=== PATIENT | female | born 1960 | race Caucasian/White ===

== ENCOUNTER → 2024-06-13 12:00 | Outpatient (BNV) | payer OTHER, SELFPAY | PROVIDERS: Visit Provider Psychiatry & Neurology Psychiatry | DX: F33.2 Major depressive disorder, recurrent severe without psychotic features (principal) | CPT/HCPCS: 90867 ==

== ENCOUNTER → 2024-07-25 16:30 | Outpatient (BNV) | payer OTHER, SELFPAY | PROVIDERS: Visit Provider Clinical Nurse Specialist Psychiatric/Mental Health | DX: F33.2 Major depressive disorder, recurrent severe without psychotic features (principal) | CPT/HCPCS: 90867; 90868 ==

== ENCOUNTER 2024-08-24 16:30 | Outpatient (RCR) | payer OTHER, SELFPAY ==
--- NOTE | 2024-05-02 13:01 | W.PM.TMSCONS ---
History of Present Illness General Data Date of Service: 05/02/2024 Reason for consult: tms eval Requesting provider: Marsha Earl History of Present Illness The patient is a 63-year-old female living alone with a long history of recurrent depression referred by Marsha Angelo nurse practitioner for treatment resistant depression. The patient has responded well previously to a full course of TMS with excellent response. There is no history psychotic symptoms or manic symptoms. Patient has been in a quite significant severe depression for about 1 year impacting her functioning and quality of life in a very significant way. She describes low energy a motivation difficulty concentrating and a great deal of difficulty experiencing any pleasure. She has had a number of stressors over the past year or more including rheumatoid arthritis with limited response, breakup with a significant other that was quite difficult year and a half ago and her daughter had had a significant depression. Patient sees her nurse practitioner for medication and also some degree of ongoing counseling. 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 Patient has had trials of Prozac 40 mg Trintellix 20 mg Effexor 150 mg, citalopram 20, sertraline 200 mg mirtazapine up to 30 mg Pristiq without benefit. [facility] Narrative: History of rheumatoid arthritis now on Kevzara was on Xeljanz previously. She does intermittently require prednisone she is on Vicodin 10 mg 3 times a day nebulizer 3 times weeks Zyrtec daily Singulair Patient does have a left shoulder repair she states this is nonfebrile magnetic able to have an MRI no surgery above the head or neck no pacemaker no cochlear implant or other metallic implants Has diffuse pain in her joints There is a questionable history of bronchiectasis reportedly although she states pulmonary function test have been okay Narrative: Left shoulder replacement Family History: History of suicide in the family daughter with depression sister with depression grandmother with a history of a mood disorder uncle committed suicide. Social History: Patient lives alone she works for [employer] and does work as a court clinician. She is close with her daughter and grandchild she lives in [place] feels somewhat isolated Substance History: na Trauma History: na stressful events over the past couple of years Meds/Allergies Meds Narrative: See hpi Allergies Allergies Allergy/AdvReac Type Severity Reaction Status Date / Time meloxicam [From MOBIC] Allergy Intermediate BLISTERS Unverified 03/29/20 15:56 Mental Status Exam Mental Status Exam Narrative: 122/75 p 87 Patient Appearance: Well Grooomed Patient Orientation: Person, Place, Time and Situation Level of Consciousness: Awake and Appropriate Patient Behavior: Cooperative Mood Description: Depressed and Blunted Affect Description: Appropriate, Constricted and Blunted Patient Cognition Impaired: No Ability to Follow Directions: Good Speech Pattern: Clear Memory Description: Intact Hallucinations: None Delusions: Not Present Thought Process: Intact and Goal Oriented Thought Content: positive for Goal Oriented, positive for Preoccupation, positive for Suicidal Ideation (No plan or intent but passive thoughts she might be better off ) and negative for Homicidal Ideation Depressive Symptoms: Insomnia, Loss of Int. in Activity, Feelings of Worthlessness, Hopelessness, Increased Fatigue, Thoughts of /Suicide, Loss of Energy and Difficulty Concentrating Judgement: Good Assessment & Plan Assessment & Plan (1) Major depressive disorder, recurrent severe without psychotic features: Status: Acute Code(s): F33.2 - Major depressive disorder, recurrent severe without psychotic features (2) Rheumatoid arthritis: Status: Acute Code(s): M06.9 - Rheumatoid arthritis, unspecified Plan The patient has no medical contraindications to treatment with TMS and has had an excellent response previously Current PHQ-9 is 21 to struggle to function work maintain herself labeled as extremely difficult. Given that the patient has not had a history of good response to medication and given that she previously had a documented excellent response to TMS she is a good candidate. Prior treatment was done without difficulty no significant adverse effects noted. No medical contraindications aware of shoulder replacement recently which should not be problematic both regarding distance and material used Total time managing care of this patient today ____ minutes. Patient educated on: diagnosis, ECT and medical condition Informed Consent: understands
--- NOTE | 2024-06-14 10:22 | HO.TMSDAILY2 ---
TMS Daily Progress Note Daily TMS Progress Note Date of Service: 06/13/24 Week #: 1 Treatment #(08-11): 1 PHQ-9 Pre-Treatment (08-08): 19 PHQ-9 Most Recent (08-08): 19 Reviewed: TMS Mapping/Re-mapping completed Verification: I have reviewed the TMS Development Disability Specialist Note and agree with the contents. The patient remains a candidate to continue TMS treatment per protocol. Assessment and Plan (1) Major depressive disorder, recurrent severe without psychotic features: Status: Acute Plan initial mapping completed MT 1.3 discussed with pt inc sz risk with mary corey had tolerated tx previously on 450 wellbutrin
--- NOTE | 2024-07-07 10:42 | P.PNPS_ITS ---
TMS Daily Progress Note Daily TMS Progress Note Date of Service: 06/15/24 Week #: 1 Treatment #(08-11): 3 PHQ-9 Pre-Treatment (08-08): 19 PHQ-9 Most Recent (08-08): 12 Reviewed: TMS Tech Note Reviewed Verification: I have reviewed the TMS Social Media Executive Note and agree with the contents. The patient remains a candidate to continue TMS treatment per protocol. Assessment and Plan (1) Major depressive disorder, recurrent severe without psychotic features: Status: Acute Plan difficuly tolerating tx coil angle adjusted secondary to fascial pain mt 90%
--- NOTE | 2024-07-07 10:42 | P.PNPS_ITS ---
TMS Daily Progress Note Daily TMS Progress Note Date of Service: 06/16/24 Week #: 1 Treatment #(08-11): 4 PHQ-9 Pre-Treatment (08-08): 19 PHQ-9 Most Recent (08-08): 12 Reviewed: TMS Tech Note Reviewed Verification: I have reviewed the TMS Insurance Account Manager Note and agree with the contents. The patient remains a candidate to continue TMS treatment per protocol. Assessment and Plan (1) Major depressive disorder, recurrent severe without psychotic features: Status: Acute Plan some fatigue post tx tolerating tx
--- NOTE | 2024-07-07 10:42 | HO.TMSDAILY2 ---
TMS Daily Progress Note Daily TMS Progress Note Date of Service: 06/20/24 Week #: 1 Treatment #(08-11): 5 PHQ-9 Pre-Treatment (08-08): 19 PHQ-9 Most Recent (08-08): 11 Reviewed: TMS Tech Note Reviewed Verification: I have reviewed the TMS Medical Collector Note and agree with the contents. The patient remains a candidate to continue TMS treatment per protocol. Assessment and Plan (1) Major depressive disorder, recurrent severe without psychotic features: Status: Acute Plan tolerating tx mt gradually inc %
--- NOTE | 2024-07-07 10:43 | P.PNPS_ITS ---
TMS Daily Progress Note Daily TMS Progress Note Date of Service: 06/23/24 Week #: 2 Treatment #(08-11): 8 PHQ-9 Pre-Treatment (08-08): 19 PHQ-9 Most Recent (08-08): 11 Reviewed: TMS Tech Note Reviewed Verification: I have reviewed the TMS Grails Web Application Developer Note and agree with the contents. The patient remains a candidate to continue TMS treatment per protocol. Assessment and Plan (1) Major depressive disorder, recurrent severe without psychotic features: Status: Acute Plan mt %inc doing well with tx no concerns
--- NOTE | 2024-07-07 10:43 | P.PNPS_ITS ---
TMS Daily Progress Note Daily TMS Progress Note Date of Service: 06/27/24 Week #: 2 Treatment #(08-11): 9 PHQ-9 Pre-Treatment (08-08): 19 PHQ-9 Most Recent (08-08): 12 Reviewed: TMS Tech Note Reviewed Verification: I have reviewed the TMS Ship Propeller Finisher Note and agree with the contents. The patient remains a candidate to continue TMS treatment per protocol. Assessment and Plan (1) Major depressive disorder, recurrent severe without psychotic features: Status: Acute Plan mt %inc 120 doing well with tx no concerns
--- NOTE | 2024-07-07 10:43 | HO.TMSDAILY2 ---
TMS Daily Progress Note Daily TMS Progress Note Date of Service: 06/21/24 Week #: 2 Treatment #(08-11): 6 PHQ-9 Pre-Treatment (08-08): 19 PHQ-9 Most Recent (08-08): 11 Reviewed: TMS Tech Note Reviewed Verification: I have reviewed the TMS Technical Communication Teacher Note and agree with the contents. The patient remains a candidate to continue TMS treatment per protocol. Assessment and Plan (1) Major depressive disorder, recurrent severe without psychotic features: Status: Acute Plan tolerating tx mt gradually inc % minimal s/e
--- NOTE | 2024-07-07 10:43 | HO.TMSDAILY2 ---
TMS Daily Progress Note Daily TMS Progress Note Date of Service: 06/28/24 Week #: 2 Treatment #(08-11): 10 PHQ-9 Pre-Treatment (08-08): 19 PHQ-9 Most Recent (08-08): 12 Reviewed: TMS Tech Note Reviewed Verification: I have reviewed the TMS Customer Contact Sales Associate Note and agree with the contents. The patient remains a candidate to continue TMS treatment per protocol. Assessment and Plan (1) Major depressive disorder, recurrent severe without psychotic features: Status: Acute Plan mt %120 doing well with tx no concernsfeeling somewhat better fights the blues
--- NOTE | 2024-07-07 10:43 | HO.TMSDAILY2 ---
TMS Daily Progress Note Daily TMS Progress Note Date of Service: 06/29/24 Week #: 3 Treatment #(08-11): 11 PHQ-9 Pre-Treatment (08-08): 19 PHQ-9 Most Recent (08-08): 12 Reviewed: TMS Tech Note Reviewed Verification: I have reviewed the TMS Proj Mgr Note and agree with the contents. The patient remains a candidate to continue TMS treatment per protocol. Assessment and Plan (1) Major depressive disorder, recurrent severe without psychotic features: Status: Acute Plan mt %120 doing well with tx no concernsfeeling somewhat better fights the blues
--- NOTE | 2024-07-07 11:26 | P.PNPS_ITS ---
TMS Daily Progress Note Daily TMS Progress Note Date of Service: 06/30/24 Week #: 3 Treatment #(08-11): 12 PHQ-9 Pre-Treatment (08-08): 19 PHQ-9 Most Recent (08-08): 12 Reviewed: TMS Tech Note Reviewed Verification: I have reviewed the TMS Air Conditioning Installer Note and agree with the contents. The patient remains a candidate to continue TMS treatment per protocol. Assessment and Plan (1) Major depressive disorder, recurrent severe without psychotic features: Status: Acute Plan mt %120 doing well with tx no concernsfeeling somewhat better fights the blues
--- NOTE | 2024-07-07 11:27 | P.PNPS_ITS ---
TMS Daily Progress Note Daily TMS Progress Note Date of Service: 07/04/24 Week #: 3 Treatment #(08-11): 13 PHQ-9 Pre-Treatment (08-08): 19 PHQ-9 Most Recent (08-08): 12 Reviewed: TMS Tech Note Reviewed Verification: I have reviewed the TMS Automotive Painter Helper Note and agree with the contents. The patient remains a candidate to continue TMS treatment per protocol. Assessment and Plan (1) Major depressive disorder, recurrent severe without psychotic features: Status: Acute Plan cont plan of care
--- NOTE | 2024-07-07 11:27 | P.PNPS_ITS ---
TMS Daily Progress Note Daily TMS Progress Note Date of Service: 06/30/24 Week #: 3 Treatment #(08-11): 12 PHQ-9 Pre-Treatment (08-08): 19 PHQ-9 Most Recent (08-08): 12 Reviewed: TMS Tech Note Reviewed Verification: I have reviewed the TMS Revenue Stamp Clerk Note and agree with the contents. The patient remains a candidate to continue TMS treatment per protocol. Assessment and Plan (1) Major depressive disorder, recurrent severe without psychotic features: Status: Acute Plan cont plan of care tolerating tx
--- NOTE | 2024-07-21 22:36 | P.PNPS_ITS ---
TMS Daily Progress Note Daily TMS Progress Note Date of Service: 07/05/24 Week #: 3 Treatment #(08-11): 14 PHQ-9 Pre-Treatment (08-08): 19 PHQ-9 Most Recent (08-08): 14 Reviewed: TMS Tech Note Reviewed Verification: I have reviewed the TMS Hardening Machine Operator Note and agree with the contents. The patient remains a candidate to continue TMS treatment per protocol. Assessment and Plan (1) Major depressive disorder, recurrent severe without psychotic features: Status: Acute Plan cont plan of care some improvement noted
--- NOTE | 2024-07-21 22:37 | P.PNPS_ITS ---
TMS Daily Progress Note Daily TMS Progress Note Date of Service: 07/07/24 Week #: 3 Treatment #(08-11): 15 PHQ-9 Pre-Treatment (08-08): 19 PHQ-9 Most Recent (08-08): 14 Reviewed: TMS Tech Note Reviewed Verification: I have reviewed the TMS Industrial Relations Specialist Note and agree with the contents. The patient remains a candidate to continue TMS treatment per protocol. Assessment and Plan (1) Major depressive disorder, recurrent severe without psychotic features: Status: Acute Plan tolerating tx some improvement noted
--- NOTE | 2024-07-21 22:39 | P.PNPS_ITS ---
TMS Daily Progress Note Daily TMS Progress Note Date of Service: 07/14/24 Week #: 4 Treatment #(08-11): 18 PHQ-9 Pre-Treatment (08-08): 19 PHQ-9 Most Recent (08-08): 12 Reviewed: TMS Tech Note Reviewed Verification: I have reviewed the TMS Center Receptionist Note and agree with the contents. The patient remains a candidate to continue TMS treatment per protocol. Assessment and Plan (1) Major depressive disorder, recurrent severe without psychotic features: Status: Acute Plan hoping for remapping somewhat discouraged ? relates to kami hernandez
--- NOTE | 2024-07-21 22:39 | HO.TMSDAILY2 ---
TMS Daily Progress Note Daily TMS Progress Note Date of Service: 07/11/24 Week #: 4 Treatment #(08-11): 16 PHQ-9 Pre-Treatment (08-08): 19 PHQ-9 Most Recent (08-08): 12 Reviewed: TMS Tech Note Reviewed Verification: I have reviewed the TMS Bleach Range Operator Note and agree with the contents. The patient remains a candidate to continue TMS treatment per protocol. Assessment and Plan (1) Major depressive disorder, recurrent severe without psychotic features: Status: Acute Plan vyvanse was lowered to 30 sec my talking initially with pt re inc sz risk with wellbutrin stimulants and tms some inc dysphoria
--- NOTE | 2024-07-21 22:39 | HO.TMSDAILY2 ---
TMS Daily Progress Note Daily TMS Progress Note Date of Service: 07/12/24 Week #: 4 Treatment #(08-11): 17 PHQ-9 Pre-Treatment (08-08): 19 PHQ-9 Most Recent (08-08): 13 Reviewed: TMS Tech Note Reviewed Verification: I have reviewed the TMS Machine Silk Screen Printer Note and agree with the contents. The patient remains a candidate to continue TMS treatment per protocol. Assessment and Plan (1) Major depressive disorder, recurrent severe without psychotic features: Status: Acute Plan we discussed remapping pt has prior experience with tx somewhat discouraged discussed options
--- NOTE | 2024-07-21 22:40 | HO.TMSDAILY2 ---
TMS Daily Progress Note Daily TMS Progress Note Date of Service: 07/21/24 Week #: 4 Treatment #(08-11): 18 PHQ-9 Pre-Treatment (08-08): 19 PHQ-9 Most Recent (08-08): 12 Reviewed: TMS Mapping/Re-mapping completed Verification: I have reviewed the TMS Salesperson Meats Note and agree with the contents. The patient remains a candidate to continue TMS treatment per protocol. Assessment and Plan (1) Major depressive disorder, recurrent severe without psychotic features: Status: Acute Plan Pt was noted to have a floater on l few days ago tms was not done then discussion was held not common known side effect rare case report her opth did nott feel any contraindication >Rmappin went well
--- NOTE | 2024-07-25 17:35 | HO.TMSDAILY2 ---
TMS Daily Progress Note Daily TMS Progress Note Date of Service: 07/25/24 Week #: 5 Treatment #(-): 20 PHQ-9 Pre-Treatment (-): 19 PHQ-9 Most Recent (08-08): 11 DOC-7 Pre-Treatment (0-21): 8 DOC-7 Most Recent (0-21): 9 Q-LES-Q-SF Most Recent: Q: 37 40 MT 1.30 Reviewed: TMS Tech Note Reviewed Verification: I have reviewed the TMS Private Security Guard Note and agree with the contents. The patient remains a candidate to continue TMS treatment per protocol. Assessment and Plan (1) Major depressive disorder, recurrent severe without psychotic features: Status: Acute Plan continue TMS tx plan
--- NOTE | 2024-07-26 17:15 | P.PNPS_ITS ---
TMS Daily Progress Note Daily TMS Progress Note Date of Service: 07/26/24 Week #: 5 Treatment #(-): 21 PHQ-9 Pre-Treatment (-): 19 PHQ-9 Most Recent (08-08): 11 DOC-7 Pre-Treatment (0-21): 8 DCO-7 Most Recent (0-21): 9 Q-LES-Q-SF Most Recent: Q: 37 40 MT 1.30 Reviewed: TMS Tech Note Reviewed Verification: I have reviewed the TMS Jewel Hole Finish Opener Note and agree with the contents. The patient remains a candidate to continue TMS treatment per protocol. Assessment and Plan (1) Major depressive disorder, recurrent severe without psychotic features: Status: Acute Plan CONTINUE TMS TX PLAN
--- NOTE | 2024-07-28 16:41 | HO.TMSDAILY2 ---
TMS Daily Progress Note Daily TMS Progress Note Date of Service: 07/27/24 Week #: 5 Treatment #(-): 22 PHQ-9 Pre-Treatment (-): 19 PHQ-9 Most Recent (08-08): 11 DOC-7 Pre-Treatment (0-21): 8 ODC-7 Most Recent (0-21): 9 Q-LES-Q-SF Most Recent: Q: 37 40 MT 1.30 Reviewed: TMS Tech Note Reviewed Verification: I have reviewed the TMS Window Shade Cutter Note and agree with the contents. The patient remains a candidate to continue TMS treatment per protocol.
--- NOTE | 2024-07-28 16:44 | HO.TMSDAILY2 ---
TMS Daily Progress Note Daily TMS Progress Note Date of Service: 07/28/24 Week #: 5 Treatment #(-): 23 PHQ-9 Pre-Treatment (-): 19 PHQ-9 Most Recent (08-08): 11 DOC-7 Pre-Treatment (0-21): 8 DOC-7 Most Recent (0-21): 9 Q-LES-Q-SF Most Recent: Q: 37 40 MT 1.30 Reviewed: TMS Tech Note Reviewed Verification: I have reviewed the TMS Bench Worker Apprentice Note and agree with the contents. The patient remains a candidate to continue TMS treatment per protocol.
--- NOTE | 2024-08-03 15:38 | HO.TMSDAILY2 ---
TMS Daily Progress Note Daily TMS Progress Note Date of Service: 08/03/24 Week #: 5 Treatment #(-): 23 PHQ-9 Pre-Treatment (-): 19 PHQ-9 Most Recent (08-08): 11 DOC-7 Pre-Treatment (0-21): 8 DOC-7 Most Recent (0-21): 9 Q-LES-Q-SF Most Recent: Q: 37 40 MT 1.30 Reviewed: TMS Tech Note Reviewed Verification: I have reviewed the TMS Full Stack Developer Note and agree with the contents. The patient remains a candidate to continue TMS treatment per protocol.
--- NOTE | 2024-08-05 18:25 | HO.TMSDAILY2 ---
TMS Daily Progress Note Daily TMS Progress Note Date of Service: 08/01/24 Week #: 5 Treatment #(-): 23 PHQ-9 Pre-Treatment (-): 19 PHQ-9 Most Recent (08-08): 11 DOC-7 Pre-Treatment (0-21): 8 DOC-7 Most Recent (0-21): 9 Q-LES-Q-SF Most Recent: Q: 37 40 MT 1.30 Reviewed: TMS Tech Note Reviewed Verification: I have reviewed the TMS Director Specialty Note and agree with the contents. The patient remains a candidate to continue TMS treatment per protocol. Assessment and Plan (1) Major depressive disorder, recurrent severe without psychotic features: Status: Acute Plan Continue TMS tx plan
--- NOTE | 2024-08-05 18:29 | HO.TMSDAILY2 ---
TMS Daily Progress Note Daily TMS Progress Note Date of Service: 08/03/24 Week #: 5 Treatment #(-): 23 PHQ-9 Pre-Treatment (-): 19 PHQ-9 Most Recent (08-08): 11 DOC-7 Pre-Treatment (0-21): 8 DOC-7 Most Recent (0-21): 9 Q-LES-Q-SF Most Recent: Q: 37 40 MT 1.30 Reviewed: TMS Tech Note Reviewed Verification: I have reviewed the TMS Resort Keeper Note and agree with the contents. The patient remains a candidate to continue TMS treatment per protocol. Assessment and Plan (1) Major depressive disorder, recurrent severe without psychotic features: Status: Acute Plan Continue TMS tx plan
--- NOTE | 2024-08-08 18:09 | P.PNPS_ITS ---
TMS Daily Progress Note Daily TMS Progress Note Date of Service: 08/08/24 Week #: 6 Treatment #(-): 28 PHQ-9 Pre-Treatment (08-08): 19 PHQ-9 Most Recent (08-08): 9 DOC-7 Pre-Treatment (0-): 8 DOC-7 Most Recent (0-): 9 Q-LES-Q-SF Most Recent: Q: 37 40 MT 1.30 Reviewed: TMS Tech Note Reviewed Verification: I have reviewed the TMS Waffle Machine Operator Note and agree with the contents. The patient remains a candidate to continue TMS treatment per protocol. Assessment and Plan (1) Major depressive disorder, recurrent severe without psychotic features: Status: Acute Plan has been improving cont tx plan
--- NOTE | 2024-08-09 17:27 | HO.TMSDAILY2 ---
TMS Daily Progress Note Daily TMS Progress Note Date of Service: 08/09/24 Week #: 6 Treatment #(-): 29 PHQ-9 Pre-Treatment (-): 19 PHQ-9 Most Recent (08-08): 9 DOC-7 Pre-Treatment (0-21): 8 DOC-7 Most Recent (0-21): 9 Q-LES-Q-SF Most Recent: Q: 37 40 MT 1.30 Reviewed: TMS Tech Note Reviewed Verification: I have reviewed the TMS System Designer Note and agree with the contents. The patient remains a candidate to continue TMS treatment per protocol. Assessment and Plan (1) Major depressive disorder, recurrent severe without psychotic features: Status: Acute Plan cont plan of care bright and engaged
--- NOTE | 2024-08-11 22:37 | HO.TMSDAILY2 ---
TMS Daily Progress Note Daily TMS Progress Note Date of Service: 08/10/24 Week #: 5 Treatment #(-): 21 PHQ-9 Pre-Treatment (-): 19 PHQ-9 Most Recent (08-08): 17 DOC-7 Pre-Treatment (0-21): 8 DOC-7 Most Recent (0-21): 9 Q-LES-Q-SF Most Recent: Q: 37 40 MT 1.30 Reviewed: TMS Tech Note Reviewed Verification: I have reviewed the TMS Business Intelligence Director Note and agree with the contents. The patient remains a candidate to continue TMS treatment per protocol. Assessment and Plan (1) Major depressive disorder, recurrent severe without psychotic features: Status: Acute Plan cont plan of care
--- NOTE | 2024-08-21 21:55 | P.PNPS_ITS ---
TMS Daily Progress Note Daily TMS Progress Note Date of Service: 08/11/24 Week #: 7 Treatment #(08-11): 31 PHQ-9 Pre-Treatment (-): 19 PHQ-9 Most Recent (08-08): 17 DOC-7 Pre-Treatment (0-21): 8 DOC-7 Most Recent (0-21): 9 Q-LES-Q-SF Most Recent: Q: 37 40 MT 1.30 Reviewed: TMS Tech Note Reviewed Verification: I have reviewed the TMS Slitting Machine Operator Note and agree with the contents. The patient remains a candidate to continue TMS treatment per protocol. Assessment and Plan (1) Major depressive disorder, recurrent severe without psychotic features: Status: Acute Plan cont plan of care tolerating tx
--- NOTE | 2024-08-21 21:59 | HO.TMSDAILY2 ---
TMS Daily Progress Note Daily TMS Progress Note Date of Service: 08/16/24 Week #: 7 Treatment #(08-11): 32 PHQ-9 Pre-Treatment (-): 19 PHQ-9 Most Recent (08-08): 9 DOC-7 Pre-Treatment (0-21): 8 DOC-7 Most Recent (0-): 9 Q-LES-Q-SF Most Recent: Q: 37 40 MT 1.30 Reviewed: TMS Tech Note Reviewed Verification: I have reviewed the TMS Adjunct Writing Instructor Note and agree with the contents. The patient remains a candidate to continue TMS treatment per protocol. Assessment and Plan (1) Major depressive disorder, recurrent severe without psychotic features: Status: Acute Plan inc anxiety re election improved with tx
--- NOTE | 2024-08-21 22:04 | HO.TMSDAILY2 ---
TMS Daily Progress Note Daily TMS Progress Note Date of Service: 08/17/24 Week #: 7 Treatment #(08-11): 33 PHQ-9 Pre-Treatment (-): 19 PHQ-9 Most Recent (08-08): 9 DOC-7 Pre-Treatment (0-21): 8 DOC-7 Most Recent (0-21): 9 Q-LES-Q-SF Most Recent: Q: 37 40 MT 1.30 Reviewed: TMS Tech Note Reviewed Verification: I have reviewed the TMS Steam Fitter Supervisor Maintenance Note and agree with the contents. The patient remains a candidate to continue TMS treatment per protocol. Assessment and Plan (1) Major depressive disorder, recurrent severe without psychotic features: Status: Acute Plan doing better generally cont plan of care
--- NOTE | 2024-08-21 22:07 | HO.TMSDAILY2 ---
TMS Daily Progress Note Daily TMS Progress Note Date of Service: 08/18/24 Week #: 8 Treatment #(08-11): 34 PHQ-9 Pre-Treatment (-): 19 PHQ-9 Most Recent (08-08): 9 DOC-7 Pre-Treatment (0-21): 8 DOC-7 Most Recent (0-21): 9 Q-LES-Q-SF Most Recent: Q: 37 40 MT 1.30 Reviewed: TMS Tech Note Reviewed Verification: I have reviewed the TMS Enterprise Integration Developer Note and agree with the contents. The patient remains a candidate to continue TMS treatment per protocol. Assessment and Plan (1) Major depressive disorder, recurrent severe without psychotic features: Status: Acute Plan pt improved cont plan of care
--- NOTE | 2024-09-06 12:14 | P.PNPS_ITS ---
TMS Daily Progress Note Daily TMS Progress Note Date of Service: 09/06/24 Week #: 6 Treatment #(-): 27 PHQ-9 Pre-Treatment (-): 19 PHQ-9 Most Recent (08-08): 12 DOC-7 Pre-Treatment (0-21): 8 DOC-7 Most Recent (0-21): 9 CGI-I Most Recent: 2 = Much Improved Q-LES-Q-SF Most Recent: Q: 37 40 MT 1.30 Reviewed: TMS Tech Note Reviewed Verification: I have reviewed the TMS Motorcycle Subassembly Repairer Note and agree with the contents. The patient remains a candidate to continue TMS treatment per protocol. Assessment and Plan (1) Major depressive disorder, recurrent severe without psychotic features: Status: Acute
--- NOTE | 2024-09-15 09:28 | HO.TMSDAILY2 ---
TMS Daily Progress Note Daily TMS Progress Note Date of Service: 08/23/24 Week #: 8 Treatment #(08-11): 35 PHQ-9 Pre-Treatment (-): 19 PHQ-9 Most Recent (08-08): 7 DOC-7 Pre-Treatment (0-21): 8 DOC-7 Most Recent (0-21): 9 CGI-I Most Recent: 2 = Much Improved Q-LES-Q-SF Most Recent: Q: 37 40 MT 1.30 Reviewed: TMS Tech Note Reviewed Verification: I have reviewed the TMS Internal Combustion Engine Subassembler Note and agree with the contents. The patient remains a candidate to continue TMS treatment per protocol. Assessment and Plan (1) Major depressive disorder, recurrent severe without psychotic features: Status: Acute Plan The patient has shown significant improvement with TMS at times somewhat overwhelmed [place] and in [place] but overall remains significantly improved
--- NOTE | 2024-09-15 09:31 | HO.TMSDAILY2 ---
TMS Daily Progress Note Daily TMS Progress Note Date of Service: 08/24/24 Week #: 8 Treatment #(08-11): 36 PHQ-9 Pre-Treatment (-): 19 PHQ-9 Most Recent (08-08): 7 DOC-7 Pre-Treatment (0-21): 8 DOC-7 Most Recent (0-21): 9 CGI-I Most Recent: 2 = Much Improved Q-LES-Q-SF Most Recent: Q: 37 40 MT 1.30 Reviewed: TMS Tech Note Reviewed Verification: I have reviewed the TMS Lamination Machine Operator Note and agree with the contents. The patient remains a candidate to continue TMS treatment per protocol. Assessment and Plan (1) Major depressive disorder, recurrent severe without psychotic features: Status: Acute Plan Patient feels significantly improved still has significant stress no significant side effects treatment completed
== END 2024-08-24 17:00 | disposition home or self-care (01) ==
LOC: HO.PTMS 16:30
PROVIDERS: Visit Provider Psychiatry & Neurology Psychiatry
DX: F33.2 Major depressive disorder, recurrent severe without psychotic features (principal)
CPT/HCPCS: 90867; 90868; 90869